=== PATIENT | male | born 1965 | race Caucasian/White ===

== ENCOUNTER 2023-07-24 04:46 | Emergency (ER) | payer BC, OTHER ==
[2023-07-24 06:25] LABS: SARS-CoV-2 NAA Rapid Test Not Detected (NotDetected)
== END 2023-07-24 06:28 | disposition home or self-care (01) ==
LOC: CSHERS 04:46
DX: J06.9 Acute upper respiratory infection, unspecified (principal); Z20.822 Contact with and (suspected) exposure to COVID-19; I10 Essential (primary) hypertension; E78.5 Hyperlipidemia, unspecified; Z79.899 Other long term (current) drug therapy
CPT/HCPCS: 99283

== ENCOUNTER 2024-03-22 06:37 | Emergency (ER) | payer OTHER ==
[2024-03-22 07:36] LABS: #Basophils 0.03 10x3/uL (0.0-0.2); #Eosinphils 0.18 10x3/uL (0.0-0.5); #Monocytes 0.48 10x3/uL (0.0-1.1); #Neutrophils 3.99 10x3/uL (1.5-8.4); %Basophils 0.4 % (0.0-2.0); %Eosinophils 2.7 % (0.0-6.0); %Lymphocytes 29.8 % (18.0-47.0); %Monocytes 7.1 % (0.0-10.0); %Neutrophils 59.4 % (40.0-75.0); Hematocrit 43.8 % (38.8-50.0); Hemoglobin 15.1 g/dL (13.5-17.5); Mean Corpuscular HGB CONC 34.5 g/dL (32.0-36.0); Mean Corpuscular Hemoglobin 30.9 pg (27.0-33.0); Mean Corpuscular Volume 89.8 fL (81.2-95.1); Mean Platelet Volume 9.8 fL (7.4-10.4); Platelet Count 258 10x3/uL (150-450); RBC Distribution Width 13.8 % (11.5-14.5); Red Blood Cell (RBC) Count 4.88 10x6/uL (4.32-5.72); White Blood Cell (WBC) Count 6.7 10x3/uL (3.5-10.5)
[2024-03-22 07:47] LABS: ALT (SGPT) 25 U/L (8-55); AST (SGOT) 19 U/L (5-34); Albumin 4.1 g/dL (3.5-5.0); Alkaline Phosphatase 78 U/L (40-110); Anion Gap 14 mmol/L (10-20); BUN (Urea Nitrogen) 24 mg/dL (8.4-25.7); Bilirubin, Total 0.4 mg/dL (0.2-1.2); Calc. Creatinine Clearance 0 mL/min (70-130); Carbon Dioxide 20 mmol/L (22-29); Chloride 111 mmol/L (98-107); Estimated GFR 52; Globulin 3.6 g/dL (2.4-3.5); Glucose 111 mg/dL (70-105); Protein, Total 7.7 g/dL (6.0-8.3); Sodium 141 mmol/L (136-145)
[2024-03-22 07:48] LABS: Troponin I Less than 0.010 ng/mL (< 0.028)
[2024-03-22 07:53] LABS: PTT 29.9 sec (22.0-33.0); Prothrombin Time 10.7 sec (9.5-12.1)
[2024-03-22] MEDS ORDERED: Iopamidol 300 61% 100 ML VIAL FS ONE (13:28)
== END 2024-03-22 09:12 | disposition home or self-care (01) ==
LOC: CSHERS 06:37
DX: K92.1 Melena (principal); K59.00 Constipation, unspecified; K21.9 Gastro-esophageal reflux disease without esophagitis; Z79.899 Other long term (current) drug therapy
CPT/HCPCS: 74177; 80053; 84484; 85025; 85610; 85730; Q9967